=== PATIENT | female | born 1970 | race African-American/Black ===

== ENCOUNTER 2018-01-17 12:49 | Outpatient (CLI) | payer SELFPAY ==
--- NOTE | 2018-01-21 15:46 | MMO ---
BILATERAL SCREENING MAMMOGRAM: DATE: 01/17/18 HISTORY: 48-year-old female for screening mammography. COMPARISON: 10/06/15. FINDINGS: Bilateral MLO and CC views of the breasts show scattered fibroglandular breast tissue. There is no ev idence of suspicious mass, suspicious cluster of microcalcifications, or area of architectural distor tion. Interpretation of this mammogram was performed with the assistance of computer-aided detection. IMPRESSION: BIRADS 1: Negative Annual screening mammography is recommended. POS: ANDRA
== END 2018-01-17 12:50 | disposition home or self-care (01) ==
LOC: SCSMAMMO 12:49
PROVIDERS: ATTEND Family Medicine
DX: Z12.31 Encounter for screening mammogram for malignant neoplasm of breast (principal)
CPT/HCPCS: 77067

== ENCOUNTER 2019-03-30 13:20 | Emergency (ER) | payer SELFPAY ==
[2019-03-30 14:12] LABS: #Basophils 0.1 thou/uL (0.0-0.2); #Eosinphils 0.1 thou/uL (0.0-0.7); #Monocytes 0.6 thou/uL (0.11-0.59); #Neutrophils 4.9 thou/uL (1.40-6.50); %Eosinophils 1.4 % (0.0-10.0); %Lymphocytes 25.9 % (21.0-51.0); %Monocytes 8.2 % (0.0-10.0); %Neutrophils 63.4 % (42.0-75.0); Hemoglobin 12.5 g/dL (12.0-16.0); Mean Corpuscular Volume 87.4 fL (78.0-98.0); Mean Platelet Volume 9.4 fL (7.4-10.4); Platelet Count 286 thou/uL (130-400); RBC Distribution Width 12.7 % (11.5-14.5); Red Blood Cell (RBC) Count 4.45 mill/uL (4.20-5.40); White Blood Cell (WBC) Count 7.7 thou/uL (4.8-10.8)
--- NOTE | 2019-03-30 15:47 | ULT ---
BILATERAL LOWER EXTREMITY VENOUS DOPPLER VENOUS DOPPLER ULTRASOUND: HISTORY: Bilateral lower extremity pain and bruising. TECHNIQUE: Bender scale ultrasound with color flow and spectral Doppler imaging of the deep venous systems of the lower extremities was performed bilaterally. FINDINGS: There is good flow, compression, and augmentation noted in the common femoral, femoral, deep femoral, popliteal, posterior tibial, and greater saphenous veins. IMPRESSION: No evidence of deep vein thrombosis in either lower extremity. POS: ANDRA
== END 2019-03-30 16:08 | disposition home or self-care (01) ==
LOC: ERS 13:20
DX: S80.12XA Contusion of left lower leg, initial encounter (principal); S80.11XA Contusion of right lower leg, initial encounter; E78.5 Hyperlipidemia, unspecified; I10 Essential (primary) hypertension; F41.9 Anxiety disorder, unspecified; Z79.899 Other long term (current) drug therapy; X58.XXXA Exposure to other specified factors, initial encounter
CPT/HCPCS: 36415; 85025; 93970

== ENCOUNTER 2019-07-18 14:00 | Emergency (ER) | payer OTHER, SELFPAY | END 2019-07-18 14:59 | disposition home or self-care (01) | LOC: ERS 14:00 | DX: S16.1XXA Strain of muscle, fascia and tendon at neck level, initial encounter (principal); E78.5 Hyperlipidemia, unspecified; E78.00 Pure hypercholesterolemia, unspecified; I10 Essential (primary) hypertension; F41.9 Anxiety disorder, unspecified; F32.9 Major depressive disorder, single episode, unspecified; Z79.899 Other long term (current) drug therapy; X50.9XXA Other and unspecified overexertion or strenuous movements or postures, initial encounter | CPT/HCPCS: 99283 ==

== ENCOUNTER 2019-08-24 10:30 | Emergency (ER) | payer SELFPAY | END 2019-08-24 11:18 | disposition home or self-care (01) | LOC: ERS 10:30 | DX: L73.9 Follicular disorder, unspecified (principal); E78.5 Hyperlipidemia, unspecified; E78.00 Pure hypercholesterolemia, unspecified; I10 Essential (primary) hypertension; F41.9 Anxiety disorder, unspecified; F32.9 Major depressive disorder, single episode, unspecified; Z79.899 Other long term (current) drug therapy | CPT/HCPCS: 99282 ==

== ENCOUNTER 2019-09-23 11:57 | Observation (INO) | payer SELFPAY ==
[2019-09-23 13:15] LABS: #Basophils 0.1 thou/uL (0.0-0.2); #Eosinphils 0.1 thou/uL (0.0-0.7); #Monocytes 0.4 thou/uL (0.11-0.59); %Basophils 0.9 % (0.0-1.0); %Eosinophils 1.7 % (0.0-10.0); %Lymphocytes 36.5 % (21.0-51.0); %Monocytes 6.8 % (0.0-10.0); %Neutrophils 54.1 % (42.0-75.0); Hemoglobin 12.7 g/dL (12.0-16.0); Mean Corpuscular HGB CONC 32.2 g/dL (32.0-36.0); Mean Corpuscular Volume 86.8 fL (78.0-98.0); Mean Platelet Volume 9.4 fL (7.4-10.4); Platelet Count 279 thou/uL (130-400); RBC Distribution Width 13.1 % (11.5-14.5); Red Blood Cell (RBC) Count 4.54 mill/uL (4.20-5.40); White Blood Cell (WBC) Count 5.6 thou/uL (4.8-10.8)
--- NOTE | 2019-09-23 13:29 | RAD ---
PORTABLE CHEST: 09/23/2019 PROVIDED CLINICAL HISTORY: Left arm pain and nausea. COMPARISON: 01/13/2015 FINDINGS: Cardiac and mediastinal silhouette is within normal limits. No focal consolidation, pleural fluid or pneumothorax apparent. IMPRESSION: No evidence for an acute cardiopulmonary process. POS: OFF
[2019-09-23 13:48] LABS: ALT (SGPT) 24 U/L (8-55); AST (SGOT) 19 U/L (5-34); Albumin 4.3 g/dL (3.5-5.0); Alkaline Phosphatase 75 U/L (40-110); Anion Gap 14 mmol/L (10-20); BUN (Urea Nitrogen) 15 mg/dL (7.0-18.7); Bilirubin, Total 0.3 mg/dL (0.2-1.2); CK (CPK) 85 U/L (29-168); Calc. Creatinine Clearance 0 mL/min (70-130); Calcium 9.7 mg/dL (7.8-10.44); Carbon Dioxide 25 mmol/L (22-29); Chloride 108 mmol/L (98-107); Estimated GFR-MDRD 74; Globulin 3.5 g/dL (2.4-3.5); Glucose 102 mg/dL (70-105); Lipase 48 U/L (8-78); Potassium 3.8 mmol/L (3.5-5.1); Protein, Total 7.8 g/dL (6.0-8.3); Sodium 143 mmol/L (136-145)
--- NOTE | 2019-09-23 15:43 | PDOC.HHP ---
Hospitalist HPI - History of Present Illness Right arm pain History of Present Illness: 49 YO F with a PMH of HTN, sciatica and HLD who presented to the ER with c/o right arm pain. This started about 2 days and has gotten worse. Pt admits to a vague left upper anterior pain. She also had some HOLLIS and some vomiting today. She denied SOB, orthopnea, palpitations or edema. Pt has no prior cardiac hx although pt's mom has a hx of RI. Upon presentation to the ER, first set of CE was neg, EKG had some T wave inversions. Due to this findings and pt's risk factors, she's being admitted for further evaluation. Hospitalist ROS - Review of Systems Constitutional: denies: fever, chills, sweats, weakness, malaise, other Eyes: denies: pain, vision change, conjunctivae inflammation, eyelid inflammation, redness, other ENT: denies: ear pain, ear discharge, nose pain, nose discharge, nose congestion , mouth pain, mouth swelling, throat pain, throat swelling, other Respiratory: denies: cough, dry, shortness of breath, hemoptysis, SOB with excertion, pleuritic pain, sputum, wheezing, other Cardiovascular: reports: chest pain Gastrointestinal: reports: vomiting. denies: nausea, abdominal pain, diarrhea, constipation, melena, hematochezia, other Genitourinary: denies: dysuria, frequency, incontinence, hematuria, retention, other Musculoskeletal: reports: neck pain, back pain. denies: shoulder pain, arm pain , hand pain, leg pain, foot pain, other Skin: denies: rash, lesions, gibran, bruising, other Neurological: reports: other (Headache) Hospitalist History - Past Medical History Cardiac: reports: HTN, Hyperlipidemia - Social History Smoking Status: Never smoker Alcohol: reports: Rare Living Situation: With Family Activity level: independent ambulation - Exam General Appearance: NAD, awake alert Eye: PERRL, anicteric sclera ENT: normocephalic atraumatic, no oropharyngeal lesions, moist mucosa Neck: supple, symmetric, no JVD, no thyromegaly, no lymphadenopathy, no carotid bruit Heart: RRR, no murmur, no gallops, no rubs, normal peripheral pulses Respiratory: CTAB, no wheezes, no rales, no ronchi, normal chest expansion, no tachypnea, normal percussion Gastrointestinal: soft, non-tender, non-distended, normal bowel sounds, no palpable masses, no hepatomegaly, no splenomegaly, no bruit Extremities: no cyanosis, no clubbing, no edema Skin: normal turgor, no lesions, no rashes Neurological: cranial nerve grossly intact, normal sensation to touch, no weakness, no focal deficits, no new deficit Musculoskeletal: normal tone, normal strength, no muscle wasting Hospitalist Results - Labs Result Diagrams: 09/23/19 12:55 09/23/19 12:55 Lab results: WBC 5.6 thou/uL (4.8-10.8) 09/23/19 12:55 Hgb 12.7 g/dL (12.0-16.0) 09/23/19 12:55 Hct 39.4 % (36.0-47.0) 09/23/19 12:55 MCV 86.8 fL (78.0-98.0) 09/23/19 12:55 Plt Count 279 thou/uL (130-400) 09/23/19 12:55 Neutrophils % 54.1 % (42.0-75.0) 09/23/19 12:55 Sodium 143 mmol/L (136-145) 09/23/19 12:55 Potassium 3.8 mmol/L (3.5-5.1) 09/23/19 12:55 Chloride 108 mmol/L (98-107) H 09/23/19 12:55 Carbon Dioxide 25 mmol/L (22-29) 09/23/19 12:55 BUN 15 mg/dL (7.0-18.7) 09/23/19 12:55 Creatinine 0.97 mg/dL (0.6-1.1) 09/23/19 12:55 Glucose 102 mg/dL (70-105) 09/23/19 12:55 Calcium 9.7 mg/dL (7.8-10.44) 09/23/19 12:55 Total Bilirubin 0.3 mg/dL (0.2-1.2) 09/23/19 12:55 AST 19 U/L (5-34) 09/23/19 12:55 ALT 24 U/L (8-55) 09/23/19 12:55 Alkaline Phosphatase 75 U/L (40-110) 09/23/19 12:55 Creatine Kinase 85 U/L (29-168) 09/23/19 12:55 Troponin I Less than 0.010 ng/mL (< 0.028) 09/23/19 12:55 Serum Total Protein 7.8 g/dL (6.0-8.3) 09/23/19 12:55 Albumin 4.3 g/dL (3.5-5.0) 09/23/19 12:55 Lipase 48 U/L (8-78) 09/23/19 12:55 Hospitalist H&P A/P - Problem (1) Radicular pain in left arm Code(s): M79.2 - NEURALGIA AND NEURITIS, UNSPECIFIED Status: Acute Assessment and Plan: Given pt's hx of sciatica and HOLLIS, will get CT cervical spine to r/o radiculopathy. Dwayne give pain meds for now. (2) Chest pain Code(s): R07.9 - CHEST PAIN, UNSPECIFIED Status: Acute Qualifiers: Chest pain type: unspecified Qualified Code(s): R07.9 - Chest pain, unspecified Assessment and Plan: Unclear etiology. Pt has vagues symps, but due to pt's risk factors, will r/o for acute coronary process. Will get Jamil, echo and stress test. Will f/u with results. Will consult cardiology of findings are positive. (3) HTN (hypertension), benign Code(s): I10 - ESSENTIAL (PRIMARY) HYPERTENSION Status: Acute Assessment and Plan: Controlled. Cont current meds. Monitor BP. (4) HLD (hyperlipidemia) Code(s): E78.5 - HYPERLIPIDEMIA, UNSPECIFIED Status: Acute Assessment and Plan: Will check FLP. Cont statins. - Plan Plan: PPx: SCDs. CODE status: Full. Dispo: Admit as observation.
[2019-09-23] MEDS ORDERED: Ondansetron PF 4 MG/2 ML Vial IVP PRN (15:54)
[2019-09-23] MEDS ORDERED: HYDROcodone/Acetaminophen 7.5/325 mg Tablet PO PRN (15:54)
[2019-09-23] MEDS ORDERED: Acetaminophen 325 MG TAB PO PRN (15:54)
[2019-09-23] MEDS ORDERED: Nitroglycerin 0.4 MG TAB (25 Tab Bottle) PO PRN (15:54)
[2019-09-23] MEDS ORDERED: Fioricet 325/50/40 mg Tablet PO PRN (15:57)
[2019-09-23 16:53] LABS: Troponin I 0.015 ng/mL (< 0.028)
--- NOTE | 2019-09-23 17:12 | CT ---
CT cervical spine without contrast: 09/23/2019 COMPARISON: None available HISTORY: Radiculopathy TECHNIQUE: Axial CT imaging at 2.5 mm intervals through the cervical spine without contrast. Coronal and sagittal reformatted imaging obtained. FINDINGS: Evaluation for central canal and/or neural foraminal stenosis is limited on routine cervica l spine CT. The visualized lung apices are unremarkable. There is mild degenerative change at the atlantoaxial in terspace. The craniocervical junction and the cervicothoracic junction are intact. No prevertebral soft tissue swelling. No anterolisthesis or retrolisthesis. C2-3: No osseous cause of significant central canal or neural foraminal stenosis C3-4: No osseous cause of significant central canal or neural foraminal stenosis C4-5: There is disc space narrowing with anterior and posterior osteophyte causing at least mild cent ral canal stenosis. There is mild right neural foraminal stenosis on the basis of uncovertebral osteophyte formation. No osseous cause of significant left neural foraminal stenosis. C5-6: There is disc space narrowing and degenerative endplate change with anterior and posterior oste ophyte. Disc osteophyte complex causes a mild/moderate degree of central canal stenosis. Bilateral facet and uncovertebral osteophyte formation with at least mild bilateral neural foraminal stenosis. C6-7: Mild disc space narrowing. Mild uncovertebral osteophyte formation on the right and mild anteri or osteophyte formation. No osseous cause of significant central canal or neural foraminal stenosis. C7-T1: No osseous cause of significant central canal or neural foraminal stenosis. No acute fracture or dislocation. No worrisome lytic or blastic bone lesion. IMPRESSION: Incompletely assessed multilevel degenerative change within the cervical spine. No acute osseous abnormality. If there are radicular symptoms, nonemergent follow-up cervical spine MRI may be beneficial.
[2019-09-23 19:38] LABS: Troponin I Less than 0.010 ng/mL (< 0.028)
[2019-09-23 20:48] VITALS: BMI 42.9
[2019-09-24 05:36] LABS: Anion Gap 12 mmol/L (10-20); BUN (Urea Nitrogen) 14 mg/dL (7.0-18.7); Calc. Creatinine Clearance 139 mL/min (70-130); Calcium 9.3 mg/dL (7.8-10.44); Carbon Dioxide 22 mmol/L (22-29); Cardiac Risk 4.4 (Less than 4.5); Chloride 109 mmol/L (98-107); Cholesterol 199 mg/dl (< 200 Desired); Estimated GFR-MDRD Greater than 90; Glucose 88 mg/dL (70-105); HDL Cholesterol 45 mg/dL (>60 Neg Risk); LDL Cholesterol, Calculated 139 mg/dL; Potassium 3.9 mmol/L (3.5-5.1); Sodium 139 mmol/L (136-145); Triglycerides 73 mg/dL (Less than 150)
[2019-09-24 05:37] LABS: #Eosinphils 0.1 thou/uL (0.0-0.7); #Lymphocytes 2.4 thou/uL (1.20-3.40); #Monocytes 0.4 thou/uL (0.11-0.59); #Neutrophils 2.6 thou/uL (1.40-6.50); %Basophils 0.7 % (0.0-1.0); %Eosinophils 2.6 % (0.0-10.0); %Lymphocytes 43.9 % (21.0-51.0); %Monocytes 6.2 % (0.0-10.0); %Neutrophils 46.6 % (42.0-75.0); Hemoglobin 12.3 g/dL (12.0-16.0); Mean Corpuscular HGB CONC 31.9 g/dL (32.0-36.0); Mean Corpuscular Hemoglobin 28.1 pg (27.0-31.0); Mean Corpuscular Volume 88.2 fL (78.0-98.0); Mean Platelet Volume 10.4 fL (7.4-10.4); Platelet Count 186 thou/uL (130-400); RBC Distribution Width 13.3 % (11.5-14.5); Red Blood Cell (RBC) Count 4.36 mill/uL (4.20-5.40); White Blood Cell (WBC) Count 5.6 thou/uL (4.8-10.8)
[2019-09-24] MEDS ORDERED: DULoxetine 60 MG CAP PO SCH (09:00)
[2019-09-24] MEDS ORDERED: Gabapentin 300 MG CAP PO SCH ×3 (09:00→21:00)
[2019-09-24] MEDS ORDERED: Amlodipine 5 MG TAB PO SCH (09:00)
[2019-09-24] MEDS ORDERED: Atorvastatin Calcium 10 MG TAB PO SCH (09:00)
[2019-09-24] MEDS ORDERED: Aspirin 325 mg Enteric Coated Tablet PO SCH (09:00)
[2019-09-24] MEDS ORDERED: Hydrochlorothiazide 25 MG TAB PO SCH (09:00)
--- NOTE | 2019-09-24 10:43 | NM ---
Exam: Cardiac SPECT stress only with EF and wall motion HISTORY: Chest pain, hypertension Stress only examination performed using adenosine protocol Patient was injected with 30.1 mCi technetium 99m sestamibi intravenously. Multiple scan images performed in the short axis, vertical long axis, horizontal long axis demonstrat es no scan evidence for infarct or ischemia. LHR-0.38 EDV-82 mL Ejection fraction-62%. Wall motion is unremarkable. IMPRESSION: Unremarkable stress only cardiac SPECT with EF and wall motion.
[2019-09-24] MEDS ORDERED: ADENOSINE 60 MG/20 ML VIAL ONE (10:53)
[2019-09-24 16:04] VITALS: BP 139/85; TEMP 97.4
--- NOTE | 2019-09-25 05:22 | DIS ---
DATE OF ADMISSION: 09/23/2019 DATE OF DISCHARGE: 09/24/2019 DISCHARGE DIAGNOSES: 1. Chest pain, musculoskeletal. 2. Hypertension, stable. 3. Hyperlipidemia, stable. CONSULTATIONS: None. PERTINENT LABORATORY AND X-RAY FINDINGS: Portable chest x-ray dated 09/23/2019, showed no acute cardiopulmonary process. CT of the cervical spine showed degenerative changes throughout the cervical spine, no acute process identified. Cardiolite stress test dated 09/24/2019, showed no evidence for reversible or fixed ischemia with calculated ejection fraction of 62%. Complete metabolic profile within normal limits. TSH 1.54. Total cholesterol 199, triglyceride 73, HDL 45, and LDL 139. Troponin I negative x3. CBC within normal limits. HOSPITAL COURSE: The patient was observed on the telemetry unit after initially presenting with nonspecific chest and upper extremity pain. The patient underwent serial cardiac biomarkers, which were negative x3 proceeding to Cardiolite stress testing showing no evidence for reversible or fixed ischemia with calculated ejection fraction of 62%. Telemetry monitoring showed sinus mechanism without evidence of acute arrhythmia or dysrhythmia. The patient's symptoms consistent with musculoskeletal chest and upper extremity pain with recommendations for symptomatic management. Overall, the patient did remain clinically stable throughout the hospital course without acute decompensation. I have examined the patient at the time of discharge and discussed followup instructions. The patient verbalized understanding and in agreement and ready for discharge on 09/24/2019. DISCHARGE MEDICATIONS: 1. Amlodipine 5 mg p.o. daily. 2. Lipitor 10 mg p.o. daily. 3. Duloxetine 60 mg p.o. daily. 4. Gabapentin 600 mg p.o. q.a.m. and 300 mg p.o. at noon with 300 mg p.o. at bedtime. 5. Hydrochlorothiazide 25 mg p.o. daily. FOLLOWUP: The patient may follow up with her primary care provider at [facility] within 7 days of discharge. CONDITION ON DISCHARGE: Stable. ACTIVITY: Ad-kamar. DIET: Heart healthy. CODE STATUS: Full. DISPOSITION: To home on 09/24/2019. Job ID: [id number]
== END 2019-09-24 18:00 | disposition home or self-care (01) ==
LOC: ERS 11:57 → ERHOLD 15:15 → 2SW 20:14
PROVIDERS: ADMIT Hospitalist; ATTEND Hospitalist
DX: R07.89 Other chest pain (principal); M79.602 Pain in left arm; M48.02 Spinal stenosis, cervical region; M47.812 Spondylosis without myelopathy or radiculopathy, cervical region; I10 Essential (primary) hypertension; E78.5 Hyperlipidemia, unspecified; F41.9 Anxiety disorder, unspecified; F32.9 Major depressive disorder, single episode, unspecified; E78.00 Pure hypercholesterolemia, unspecified; Z79.899 Other long term (current) drug therapy
CPT/HCPCS: 36415; 71045; 72125; 78452; 80048; 80053; 80061; 82550; 83690; 84443; 84484; 85025; 93005; 93017; 94760; A9500; G0378; J0153

== ENCOUNTER 2019-11-19 21:28 | Emergency (ER) | payer SELFPAY ==
[2019-11-19 22:07] LABS: Bilirubin Negative (Negative); Blood, Urine Trace (Negative); Clarity Clear (Clear); Glucose, Urine (Dipstick) Normal (Negative); Leukocyte 250 Leu/uL (Negative); Nitrite Negative (Negative); Protein, Urine (Dipstick) 20 mg/dL (Neg-Trace); Squamous Epithelial 0-3 HPF (0-3); Urobilinogen Normal mg/dL (Less than 2); WBC/HPF Greater than 50 HPF (0-3)
[2019-11-19 22:08] LABS: Bacteria/HPF 1+ HPF (None Seen)
== END 2019-11-19 22:41 | disposition home or self-care (01) ==
LOC: ERS 21:28
DX: N39.0 Urinary tract infection, site not specified (principal); E78.5 Hyperlipidemia, unspecified; E78.00 Pure hypercholesterolemia, unspecified; I10 Essential (primary) hypertension; F41.9 Anxiety disorder, unspecified; F32.9 Major depressive disorder, single episode, unspecified; Z79.1 Long term (current) use of non-steroidal anti-inflammatories (NSAID); Z79.899 Other long term (current) drug therapy
CPT/HCPCS: 81003; 81015; 99283

== ENCOUNTER 2020-08-06 17:42 | Emergency (ER) | payer SELFPAY ==
[2020-08-06] MEDS ORDERED: Ketorolac Tromethamine 30 MG/ML VIAL ONE (19:13)
--- NOTE | 2020-08-06 19:40 | RAD ---
THORACIC SPINE SERIES THREE VIEWS: 08/06/20 HISTORY: Back pain starting four days ago radiating down legs. Vertebral bodies are normal in height. Degenerative osteophytes are present along the course of the s pine asymmetrically along the right side. Pedicles are intact. IMPRESSION: Moderate arthritic change of the spine. POS: OFF
== END 2020-08-06 20:00 | disposition home or self-care (01) ==
LOC: ERS 17:42
DX: M54.6 Pain in thoracic spine (principal); E78.5 Hyperlipidemia, unspecified; E78.00 Pure hypercholesterolemia, unspecified; I10 Essential (primary) hypertension; F32.9 Major depressive disorder, single episode, unspecified; F41.9 Anxiety disorder, unspecified; Z79.899 Other long term (current) drug therapy
CPT/HCPCS: 72072; 96372; J1885

== ENCOUNTER 2020-10-13 22:14 | Emergency (ER) | payer SELFPAY ==
[2020-10-13] MEDS ORDERED: Ketorolac Tromethamine 30 MG/ML VIAL ONE (23:45)
--- NOTE | 2020-10-14 07:38 | ULT ---
PRELIMINARY REPORT/DIRECT RADIOLOGY/EMERGENCY AFTER HOURS PROCEDURE: EXAM: US Duplex left Lower Extremity Veins. CLINICAL HISTORY: LLE pain/edema TECHNIQUE: Real-time ultrasound scan of the veins of the left lower extremity with color Doppler flow , spectral waveform analysis and compression. COMPARISON: None provided. FINDINGS: DEEP VEINS: The common femoral, femoral, and popliteal veins are echolucent and compressible. These v essels demonstrate respiratory variation and augmentation. There is normal color Doppler flow throughout. The visualized calf veins are also patent. SUPERFICIAL VEINS: The visualized greater saphenous vein is patent. SOFT TISSUES: No popliteal fossa cyst or other abnormalities. IMPRESSION: No deep venous thrombosis in the left lower extremity. ELECTRONICALLY SIGNED BY: Leroy Mckeon MD Oct 14, 2020 12:49:53 AM UPHOLSTERER APPRENTICE FINAL REPORT LEFT LOWER EXTREMITY VENOUS DOPPLER ULTRASOUND: DATE: 10/14/2020. COMPARISON: None. HISTORY: Left lower extremity pain, edema, swelling, assess for DVT. FINDINGS: I agree with the preliminary report. No sonographic evidence for deep venous thrombosis of the left l ower extremity. Left common femoral vein, greater saphenous vein, profunda femoral vein, femoral vein, popliteal vein, and posterior tibial vein are patent and were evaluated with grayscale, Doppler interrogation, and color flow/spectral analysis. IMPRESSION: No evidence for deep venous thrombosis of the left lower extremity. Transcribed Date/Time: 10/14/2020 9:20 AM
--- NOTE | 2020-10-16 11:50 | EKG ---
Test Reason : Blood Pressure : / mmHG Vent. Rate : 071 BPM Atrial Rate : 071 BPM P-R Int : 152 ms QRS Dur : 078 ms QT Int : 394 ms P-R-T Axes : 025 010 -10 degrees QTc Int : 428 ms Normal sinus rhythm Minimal voltage criteria for LVH, may be normal variant Nonspecific T wave abnormality Abnormal ECG Confirmed by GARRY العراقي M.D. ([id number]), greeting card editor SANDHYA REEDER ([id number]) on 10/16/2020 11:50:27 AM Referred By: Confirmed By:GARRY العراقي M.D.
== END 2020-10-14 02:07 | disposition home or self-care (01) ==
LOC: ERS 22:14
DX: M79.18 Myalgia, other site (principal); I10 Essential (primary) hypertension; E78.00 Pure hypercholesterolemia, unspecified; E78.5 Hyperlipidemia, unspecified; Z79.899 Other long term (current) drug therapy
CPT/HCPCS: 93005; 96372; J1885